=== PATIENT | female | born 1990 | race Caucasian/White ===

== ENCOUNTER 2016-12-26 11:39 | Emergency (ER) | payer SELFPAY ==
[~2016-12-26] VITALS: Ht 162.6 cm; Wt 62.3 kg
[2016-12-26 11:56] VITALS: BP 142/78; PULSE 103; RESP 20; O2SAT 98
[2016-12-26] MEDS ORDERED: PRED10 PO (12:24)
[2016-12-26] MEDS ORDERED: VENL75TA PO (12:24)
--- NOTE | 2016-12-26 12:41 | PD ---
HPI Chief Complaint: General Weakness Time Seen by Provider: 12:17 Travel History International Travel<30 days: No Contact w/Intl Traveler<30days: No Traveled to known affect area: No History of Present Illness HPI 26yo F with PMH of ITP presents to the ED with multiple complaints. Pt is complaining of left paraspinal lower back pain for 3 days. Denies any trauma, fever, focal weakness or numbness, chest pain, sob, n/v, abdominal pain. Pain is mostly left sided and worst with movement. Denies any IVDA. Pt also with left tooth pain and states she has an impacted wisdom tooth but has not seen a dentist. Pt was hospitalized 1 week ago in hospital in [place] for ITP and received 2 doses of IVIG. Pt has not follow up with hematology as outpatient yet. Pt also complaining of not sleeping well for a few days. PFSH Past Medical History Depression: Yes Medical other: Yes (ITP) Influenza Vaccination: No ?: Not LMP: 2 MONTHS AGO, CONTROLL IMPLANT Past Surgical History Section: Yes Social History Alcohol Use: No Tobacco Use: Yes (1 PPD) Substance Use: No Allergies-Medications (Allergen,Severity, Reaction): Coded Allergies: No Known Allergies (Unverified , 12/26/16) Reported Meds & Prescriptions Reported Meds & Active Scripts Active Ibuprofen 600 Mg Tab 600 Mg PO Q8HR PRN Reported Effexor (Venlafaxine HCl) 75 Mg Tab 75 Mg PO Q12H Prednisone 10 Mg Tab 10 Mg PO DAILY Review of Systems Except as stated in HPI: all other systems reviewed are Neg Physical Exam Narrative GENERAL: 26yo F not in distress. SKIN: Warm and dry. HEAD: Atraumatic. Normocephalic. EYES: Pupils equal and round. No scleral icterus. No injection or drainage. ENT: Throat: Clear. Impacted tooth in tooth #17. NECK: Trachea midline. No JVD. CARDIOVASCULAR: Regular rate and rhythm. No murmur appreciated. RESPIRATORY: No accessory muscle use. Clear to auscultation. Breath sounds equal bilaterally. GASTROINTESTINAL: Abdomen soft, non-tender, nondistended. BACK: No midline ttp thoracic or lumbar spine. +TTP left paraspinal L4-L5. MUSCULOSKELETAL: No obvious deformities. No clubbing. No cyanosis. No edema. NEUROLOGICAL: Awake and alert. No obvious cranial nerve deficits. Motor grossly within normal limits. Normal speech. PSYCHIATRIC: Appropriate mood and affect; insight and judgment normal. Data Data Last Documented VS Vital Signs Date Time Temp Pulse Resp B/P Pulse Ox O2 Delivery O2 Flow Rate FiO2 12/26/16 14:08 80 16 112/75 98 Orders Complete Blood Count With Diff (12/26/16 12:37) Basic Metabolic Panel (Bmp) (12/26/16 12:37) Prothrombin Time / Inr (Pt) (12/26/16 12:37) Act Partial Throm Time (Ptt) (12/26/16 12:37) Urinalysis - C+S If Indicated (12/26/16 12:37) Ed Urine Pregnancytest Poc (12/26/16 12:37) Magnesium (Mg) (12/26/16 12:37) Urine Culture (12/26/16 12:30) Ketorolac Inj (Toradol Inj) (12/26/16 13:30) Sodium Chlor 0.9% 1000 Ml Inj (Ns 1000 M (12/26/16 13:30) Labs Laboratory Tests Test 12/26/16 12/26/16 12:30 12:45 Urine Collection Type CLEAN CATCH Urine Color YELLOW Urine Turbidity SLIGHT Urine pH 7.0 Urine Specific [place] 1.012 Urine Protein NEG mg/dL Urine Glucose (UA) 250 mg/dL Urine Ketones NEG mg/dL Urine Occult Blood NEG Urine Nitrite NEG Urine Bilirubin NEG Urine Leukocyte Esterase NEG Urine WBC 3-5 /hpf Urine Squamous Epithelial > 8 /hpf Cells Urine Amorphous Sediment MOD Urine Bacteria MOD /hpf Microscopic Urinalysis Comment CULTURE INDICATED Urine Collection Time 1230 White Blood Count 10.7 TH/MM3 Red Blood Count 4.30 MIL/MM3 Hemoglobin 13.6 GM/DL Hematocrit 40.0 % Mean Corpuscular Volume 92.9 FL Mean Corpuscular Hemoglobin 31.5 PG Mean Corpuscular Hemoglobin 34.0 % Concent Red Cell Distribution Width 13.3 % Platelet Count 451 TH/MM3 Mean Platelet Volume 7.9 FL Neutrophils (%) (Auto) 86.5 % Lymphocytes (%) (Auto) 11.8 % Monocytes (%) (Auto) 1.0 % Eosinophils (%) (Auto) 0.0 % Basophils (%) (Auto) 0.7 % Neutrophils # (Auto) 9.2 TH/MM3 Lymphocytes # (Auto) 1.3 TH/MM3 Monocytes # (Auto) 0.1 TH/MM3 Eosinophils # (Auto) 0.0 TH/MM3 Basophils # (Auto) 0.1 TH/MM3 CBC Comment DIFF FINAL Differential Comment Prothrombin Time 10.4 SEC Prothromb Time International 0.9 RATIO Ratio Activated Partial 24.0 SEC Thromboplast Time Sodium Level 141 MEQ/L Potassium Level 4.2 MEQ/L Chloride Level 103 MEQ/L Carbon Dioxide Level 31.9 MEQ/L Anion Gap 6 MEQ/L Blood Urea Nitrogen 10 MG/DL Creatinine 0.66 MG/DL Estimat Glomerular Filtration 110 ML/MIN Rate Random Glucose 98 MG/DL Calcium Level 8.9 MG/DL Magnesium Level 2.3 MG/DL [facility] Medical Decision Making Medical Screen Exam Complete: Yes Emergency Medical Condition: Yes Differential Diagnosis Electrolyte abnormalities vs. UTI Narrative Course 26yo well appearing female here with multiple complaints. Pt recently moved to [place] and has not had primary care follow up here yet. Labs reviewed, no leukocytosis. H/H normal. Platelet count is 451. BMP unremarkable. Magnesium normal. UA showed squamous cell >8 so likely contamination. Pt has no urinary complaints so will not treat and will wait for urine culture. Pt given toradol and IVF NS with improvement of pain. Diagnosis Primary Impression: Back pain Qualified Code: M54.5 - Acute left-sided low back pain without sciatica Patient Instructions: General Instructions Departure Forms: Tests/Procedures Additional Instructions: Please follow up with hematology as outpatient for your ITP that you were hospitalized for before. Please call for appointment. Please follow up with dentist as outpatient for your dental pain. Please return to the ED if symptoms worsen. Med/Other Pt SpecificInfo: Prescription(s) given Scripts Acetaminophen (Acetaminophen Extra Strength)500 Mg [id number] Mg PO Q6H PRN (PAIN SCALE 1 TO 4) #20 TAB Ref 0 Prov:Valentina Castaneda 12/26/16 Ibuprofen 600 Mg [id number] Mg PO Q8HR PRN (PAIN) #20 TAB Ref 0 Prov:Valentina Castaneda 12/26/16 Disposition: 01 DISCHARGE HOME Condition: Stable Valentina Castaneda Dec 26, 2016 12:41
[2016-12-26 12:47] LABS: BLOOD, URINE NEG (NEG); GLUCOSE,URINE 250 mg/dL (NEG); KETONE, URINE NEG (NEG); NITRITE,URINE NEG (NEG)
[2016-12-26 12:51] LABS: METHOD OF COLLECTION CLEAN CATCH; URINE COLOR YELLOW (YELLW/STRAW)
[2016-12-26 12:52] LABS: BACTERIA, URINE MOD /hpf; COMMENT (UR) CULTURE INDICATED; COMMENT2 (UR) MUCOUS PRESENT; CULTURE IF INDICATED CULTURE INDICATED; SQUAMOUS EPITHELIAL CELL URINE > 8 /hpf (0-5)
[2016-12-26 12:56] LABS: AUTOMATED NEUTROPHIL # 9.2 TH/MM3 (1.8-7.7); BASOPHIL # 0.1 TH/MM3 (0-0.2); BASOPHIL % 0.7 % (0.0-2.0); LYMPH % 11.8 % (9.0-44.0); LYMPHOCYTE # 1.3 TH/MM3 (1.0-4.8); MEAN CELL VOLUME 92.9 FL (80.0-100.0); MEAN CORPUSCULAR HEMOGLOBIN 31.5 PG (27.0-34.0); NEUT % 86.5 % (16.0-70.0); PLATELET COUNT 451 TH/MM3 (150-450); RED CELL DISTRIBUTION WIDTH 13.3 % (11.6-17.2); WHITE BLOOD COUNT 10.7 TH/MM3 (4.0-11.0)
[2016-12-26 12:57] LABS: HEMO FLAGS DIFF FINAL
[2016-12-26 13:05] LABS: POTASSIUM 4.2 MEQ/L (3.5-5.1)
[2016-12-26 13:08] LABS: BICARBONATE 31.9 MEQ/L (21.0-32.0); MAGNESIUM 2.3 MG/DL (1.5-2.5)
[2016-12-26 13:10] LABS: INTERNATIONAL NORMALIZED RATIO 0.9 RATIO; PROTHROMBIN TIME - PATIENT 10.4 SEC (9.8-11.6)
[2016-12-26] MEDS ORDERED: SODIUM CHLOR 0.9% 1000 ML INJ 1,000 ML IV ONE (13:30)
[2016-12-26] MEDS ORDERED: KETOROLAC TROMETHAMINE 30 MG/ML (IVP) VIAL IV PUSH ONE (13:30)
[2016-12-26 14:06] VITALS: BP 112/75; PULSE 96; RESP 16; O2SAT 95
[2016-12-26 14:08] VITALS: BP 112/75; PULSE 80; RESP 16; O2SAT 98
[2016-12-26] MEDS ORDERED: IBUP-232 PO (14:20)
[2016-12-26] MEDS ORDERED: ACET500T36 PO (14:45)
== END 2016-12-26 14:52 | disposition home or self-care (01) ==
LOC: PHED 11:39
DX: M54.5 Low back pain (principal); D69.3 Immune thrombocytopenic purpura; K01.1 Impacted teeth; F17.200 Nicotine dependence, unspecified, uncomplicated; Z79.899 Other long term (current) drug therapy
CPT/HCPCS: 80048; 81001; 83735; 84703; 85025; 85610; 85730; 87086; 96374; 99283; J1885; J7030